=== PATIENT | female | born 1960 | race Two or more races ===

== ENCOUNTER 2024-11-04 08:15 | Emergency (ER) | payer MEDICAID, SELFPAY ==
[2024-11-04 08:16] VITALS: BMI 26.4
[2024-11-04 08:52] VITALS: BP 119/70; PULSE 69; RESP 20; TEMP 37.7; O2SAT 98; BMI 26.6
--- NOTE | 2024-11-04 09:12 | XR_ITS ---
Examination: PA lateral chest 2 views TECHNIQUE: Upright PA lateral chest 2 views Exam date and time: November 04, 2024 0933 hours INDICATIONS: Coughing 3 days. FINDINGS: Infiltrate in the left upper lobe which may be cavitary, 3 cm cavity Normal heart size No pulmonary edema IMPRESSION: Recommend CT chest without contrast follow-up to exclude cavitary parenchymal disease left upper lobe
--- NOTE | 2024-11-04 10:34 | XR_ITS ---
Examination: CT chest, without intravenous contrast. Sagittal and coronal 2-D reconstructions. Exam date and time: November 04, 2024 1120 hours INDICATIONS: Coughing shortness of breath today, cavitary parenchymal disease history September 28, 2022 CTDI:vol (mGy) 10.2 DLP: (mGycm) 263 Technique: Multiple 3.0 mm axial sections of the chest to been obtained. Bone and lung density settings are obtained. Sagittal and coronal 2-D reconstructions have been obtained. Low dose protocols were performed. One or more of the following dose reduction techniques were used; automated exposure control, adjustment of the mA and/or KV according to patient size, use of iterative reconstruction technique. 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
--- NOTE | 2024-11-04 10:34 | PD.EDRME ---
Rapid Medical Screening Exam RME Arrival date/time: 11/04/24 08:15 64-year-old female presents emergency department complaints of cough and congestion Chief Complaint: Flu Like Symptoms Time Seen by Provider: 11/04/24 08:38 Vital signs: Vital Signs Temperature 99.9 F 11/04/24 08:52 Pulse Rate 69 11/04/24 08:52 Respiratory Rate 20 11/04/24 08:52 Blood Pressure 119/70 11/04/24 08:52 Pulse Oximetry (%) 98 11/04/24 08:52 Oxygen Delivery Method Room Air 11/04/24 08:52
[2024-11-04 10:35] LABS: Basophils # (Auto) 0.1 Thou/mm3 (0.0-0.2); Basophils % (Auto) 1 % (0-2.5); Eosinophils # (Auto) 0.2 Thou/mm3 (0.0-0.5); Eosinophils % (Auto) 4 % (0-10); Hematocrit 41.3 % (36.0-46.0); Hemoglobin 14.8 g/dL (12.0-16.0); Immature Granulocytes % (Auto) 1 % (0-0); Immature Granulocytes Auto 0.03 Thou/mm3 (0.00-0.00); Lymphocytes # (Auto) 0.6 Thou/mm3 (1.0-4.8); Lymphocytes % (Auto) 10 % (10-50); Mean Corpuscular HGB Conc 35.8 g/dl (31.0-37.0); Mean Corpuscular Hemoglobin 33.2 pg (25.0-35.0); Mean Corpuscular Volume 93 fL (80-100); Monocytes # (Auto) 0.5 Thou/mm3 (0.0-0.8); Monocytes % (Auto) 8 % (0-12); Neutrophils # (Auto) 4.9 Thou/mm3 (1.8-7.7); Neutrophils % (Auto) 77 % (37-80); Nucleated Red Blood Cell % 0 /100 WBC (0); Platelet Count 174 Thou/mm3 (140-440); RDW Standard Deviation 41.8 fL (36.4-46.3); Red Blood Count 4.46 Miln/mm3 (4.00-5.20); White Blood Count 6.4 Thou/mm3 (3.6-11.0)
[2024-11-04 10:49] LABS: Alanine Aminotransferase 16 U/L (10-49); Albumin, Serum 4.2 gm/dL (3.4-4.8); Albumin/Globulin Ratio 1.3 (1.2-2.2); Alkaline Phosphatase 90 U/L (46-116); Anion Gap 8 (7-16); Aspartate Amino Transferase 27 U/L (0-34); BUN/Creatinine Ratio 6 Ratio (12-20); Bilirubin,Total 0.8 mg/dL (0.3-1.2); Blood Urea Nitrogen < 5 mg/dL (9-23); Calcium 9.3 mg/dL (8.3-10.6); Calcium (Corrected) 9.3 mg/dL (8.5-10.1); Carbon Dioxide 27.1 mMol/L (20.0-31.0); Chloride 95 mMol/L (98-107); Creatinine (Component) 0.8 mg/dL (0.6-1.3); Estimated Creatinine Clearance 69.4 mL/min (>60); Globulin 3.2 gm/dL (2.3-3.5); Glucose 230 mg/dL (74-106); Lipase 23 U/L (12-53); Osmolality,Calculated 265 (275-295); Potassium 4.1 mMol/L (3.4-5.1); Sodium 130 mMol/L (136-145); Total Protein 7.4 gm/dL (5.7-8.2); eGFR > 60 See Note
[2024-11-04] MEDS: ONDANSETRON ODT 4 MG TABRAP PO (11:10)
--- NOTE | 2024-11-04 12:03 | EDNOTE_ITS ---
Upper Respiratory Inf. RME/HPI General Chief Complaint: Flu Like Symptoms Stated Complaint: BODYACHES, NAUSEA, VOMITING X3 DAYS Time Seen by Provider: 11/04/24 08:38 Arrival date/time: 11/04/24 08:15 64 year old female present to emergency room with c/o of bodyaches, cough nausea and vomiting for 2 days. pt report lung findings has been cleared by specialist SEVERITY: Symptoms are described as being severe with limitations on activities of daily living CONTEXT: The patient is unable to identify any inciting events. DURATION/TIMING: The symptoms started approximately 2 days ASSOCIATED SYMPTOMS: The patient is unable to identify any other associated symptoms. MODIFYING FACTORS: The patient is unable to identify any alleviating or aggravating symptoms. PERTINENT ROS: no fevers, no pleuritic pain, no ripping or tearing sensations, denies any lower extremity edema and no unilateral swelling, no chest pain/shortness of breath no diarrhea, no dizziness/headache no rash no loc/syncope episode no abd/back pain no dsyuria,urgency,frequency REVIEW OF SYSTEMS: See History of Present Illness - with the exception of those mentioned in the history of present illness, all other systems reviewed and reported as negative GENERAL: In general the patient is awake, interactive, in an emergency depart [facility]. HEAD/EYES/EARS/NOSE/THROAT: normo-cephalic, atraumatic, mucus membranes are moist, anicteric, palpebral conjunctiva is pink, trachea is midline. CARDIOVASCULAR: regular rate and regular rhythm, no murmurs, heart sounds are not distant, strong pulses in all four extremities that are equal and symmetric bilateral upper and lower extremities, normal capillary refill. CHEST/PULMONARY: normal chest rise and fall, good air movement, clear to auscultation bilaterally, normal inspiratory to expiratory ratios without evidence of respiratory distress. NECK: No midline/Paraspinal tenderness, no step off ROM/Strenght intact No Kernig and bruzinski sign. No trauma ABDOMEN: soft, not tender, no masses appreciated BACK: normal range of motion without pain. NEUROLOGICAL: cranio-facial features are symmetric, moves all four extremities equally without obvious limitations or weakness. EXTREMITY: no tenderness to palpation over the long bones or large joints of the bilateral upper and lower extremities, no joint swelling, no joint erythema, no signs of trauma, no unilateral leg swelling and no peripheral edema. SKIN: warm, dry, well-perfused, no jaundice, no rash, no telangiectasias or petechia. PSYCH: calm, cooperative, no evidence of psychosis or agitation RME / HPI RME / HPI Narrative: 11/04/24 08:15 64-year-old female presents emergency department complaints of cough and congestion Related Data Home Medications ?Medication ?Instructions ?Recorded ?Confirmed levothyroxine 100 mcg tablet 100 mcg PO QDAY 11/02/17 09/28/22 glipizide 5 mg tablet 5 mg PO QDAY 05/25/19 lisinopril 5 mg tablet 5 mg PO QDAY 09/28/22 Previous Rx's ?Medication ?Instructions ?Recorded albuterol sulfate 90 mcg/actuation 1 inh inhalation QI D PRN shortness 09/14/23 aerosol inhaler of breath or wheezing #8.5 g maria amoxicillin 875 mg-potassium 1 tab PO BID #14 tabs clavulanate 125 mg tablet azithromycin 250 mg tablet See Rx Instructions PO .COM PLEX #6 09/14/23 (Zithromax Z-Brandon) tabs benzonatate 200 mg capsule 200 mg PO BID PRN cough #30 caps 11/04/24 oseltamivir 75 mg capsule (Tamiflu) 75 mg PO BID 5 day s #10 caps 11/04/24 Allergies Allergy/AdvReac Type Severity Reaction Status Date / Time No Known Allergies Allergy Verified 11/04/24 08:19 Course Quality Measures none Orders Category Date Time Status Bedside Influenza A&B Antigen Test NOW Care 11/04/24 09:[address] chest wo con Stat Exams 11/04/24 10:34 Completed XR chest 2V Stat Exams 11/04/24 09:12 Completed CBC Stat Lab 11/04/24 10:25 Completed Comprehensive Metabolic Panel Stat Lab 11/04/24 10:25 Completed Lipase Stat Lab 11/04/24 10:25 Completed Benzonatate [Tessalon] Med 11/04/24 12:50 Discontinued 200 mg PO X1 ONE Ondansetron Odt [Zofran Odt] Med 11/04/24 09:12 Discontinued 4 mg PO X1 ONE Oseltamivir [Tamiflu] Med 11/04/24 12:50 Discontinued 75 mg PO X1 ONE Reevaluation(s) Reevaluation #1: pt report 7 months ago, had bx of lower left lung non cancerous. and beign. pt positive for influenza Vital Signs Vital signs: Vital Signs Temperature 99.9 F 11/04/24 08:52 Pulse Rate 69 11/04/24 08:52 Respiratory Rate 20 11/04/24 08:52 Blood Pressure 119/70 11/04/24 08:52 Pulse Oximetry (%) 98 11/04/24 08:52 Oxygen Delivery Method Room Air 11/04/24 08:52 Upper Respiratory Infection Patient data External records reviewed:: [facility] previous records Clinical information provided by:: patient Social determinants that could affect healthcare access:: none Patient has the following chronic illnesses:: DM, Cellulitis How is presenting disease/condition affected by chronic disease/condition?: uneffected by Evaluation data The following diagnostics were reviewed and interpreted by me:: lab results, radiology exam(s) and EKG tracing(s) Lab and/or radiology exams considered but not ordered:: none Interpretation Summary: xray: FINDINGS: Infiltrate in the left upper lobe which may be cavitary, 3 cm cavity Normal heart size No pulmonary edema IMPRESSION: Recommend CT chest without contrast follow-up to exclude cavitary parenchymal disease left upper lobe CT: No thoracic aortic aneurysm dilatation Prominent calcification left anterior descending left circumflex coronary arteries Mild enlargement cardiac contour Again noted thick-walled cavitary lesion left upper lobe, currently measuring 29 mm with satellite 7 mm pulmonary nodule Slightly more caudad thick-walled cavitary lesion again noted, 13 mm No interval pulmonary edema or pneumonia No visualized liver or splenic lesion Small gallstones No pancreatic or adrenal mass IMPRESSION: Stable 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 + fluenza a Medications / Prescriptions Medications or Prescriptions considered but not ordered:: none Medication administrations:: Medication Administration History Discontinued Medications Benzonatate (Benzonatate 100 Mg Capsule) 200 mg PO X1 ONE; Protocol Stop: 11/04/24 12:51 Ondansetron HCl (Ondansetron Odt 4 Mg Tabrap) 4 mg PO X1 ONE; Protocol Stop: 11/04/24 09:13 Last Admin: 11/04/24 11:10 Dose: 4 mg Documented By: Oseltamivir Phosphate (Oseltamivir 75 Mg Capsule) 75 mg PO X1 ONE Stop: 11/04/24 12:51 as stated above Consultations Consultation(s) initiated? (list below): No Diagnosis Upper Respiratory Differential Diagnosis: upper respiratory infection, viral infection, bronchitis, influenza and other (mass, pna ) Most likely diagnosis given after review of the tests above:: mass in lungs, influenza Admission Indicated Admission indicated?: not indicated Admission Request Was there a request for admission?: No Disposition Plan Disposition Plan: Discharge Discharge Attestation Discharge Attestation: The patient and all family members were given an opportunity to ask questions and understood the discharge instructions. Discharge instructions specifically effects, indications for sooner follow up or return to the emergency department, and the expected course of current diagnosis. Patient condition: Stable Discharge Plan Plan Patient Disposition: HOME (Self Care) Health Concerns: Follow with PMD as directed Take tylenol or motrin as need Return to ED if sx worsen Prescriptions/Referrals Prescriptions/Med Rec: New oseltamivir [Tamiflu] 75 mg capsule 75 mg PO BID 5 Days Qty: 10 0RF benzonatate 200 mg capsule 200 mg PO BID PRN (Reason: cough) Qty: 30 0RF No Action levothyroxine 100 mcg Tablet 100 mcg PO QDAY glipizide 5 mg Tablet 5 mg PO QDAY lisinopril 5 mg Tablet 5 mg PO QDAY amoxicillin-pot clavulanate 875-125 mg tablet 1 tab PO BID Qty: 14 0RF azithromycin [Zithromax Z-Brandon] 250 mg tablet See Rx Instructions .ROUTE .COMPLEX Qty: 6 0RF Rx Instructions: For 250 mg dose pack: take 500 mg today (day 1), then 250 mg for 4 days (days 2-5) albuterol sulfate 90 mcg/actuation HFA aerosol inhaler 1 inh inhalation QID PRN (Reason: shortness of breath or wheezing) Qty: 8.5 0RF Referrals: Bárbara De La Paz PA-C [Primary Care Provider] - In 1 week Problem List Clinical Impression: Influenza A Patient/Caregiver Discharge Instructions Education Materials: ED Influenza (Adult) Print Language: [place] Stand Alone Forms: Loan Award Info., Patient Portal Info Letter
[2024-11-04] MEDS: OSELTAMIVIR 75 MG CAPSULE PO (13:45)
[2024-11-04] MEDS: BENZONATATE 100 MG CAPSULE 200 MG PO (13:45)
[2024-11-04 13:53] VITALS: BP 120/70; PULSE 74; RESP 16; TEMP 37; O2SAT 98
== END 2024-11-04 13:53 | disposition home or self-care (01) ==
PROVIDERS: Nurse Practitioner Primary Care; Emergency Provider Emergency Medicine; PCP Physician Assistant
DX: J10.1 Influenza due to other identified influenza virus with other respiratory manifestations (principal)
CPT/HCPCS: 36415; 71046; 71250; 80053; 81001; 83690; 85025; 86635; 87400; 99284; Q0162; A9270